=== PATIENT | female | born 2005 | race Caucasian/White ===

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

== ENCOUNTER 2024-03-02 13:16 | Emergency (ER) | payer SELFPAY ==
[2024-03-02 13:18] VITALS: BP 116/72; PULSE 111; RESP 16; TEMP 36.8; O2SAT 98
[2024-03-02 13:30] VITALS: BP 140/91; PULSE 105; O2SAT 99
--- NOTE | 2024-03-02 13:30 | PC.NURSE ---
i spoke with OB regarding pt
--- NOTE | 2024-03-02 13:33 | HMH.EDGENADL ---
Discharge Plan Disposition Patient Disposition: Home, Self-Care Condition: Good Prescriptions Prescriptions: New ibuprofen 800 mg tablet 800 mg PO Q8H 3 Days Qty: 9 0RF ondansetron 4 mg tablet,disintegrating 4 mg PO Q6H PRN (Reason: nausea and vomiting) 4 Days Qty: 16 0RF No Action Classic 28 mg iron- 800 mcg tablet PO DAILY duloxetine [Cymbalta] 20 mg capsule,delayed release(DR/EC) 40 mg PO DAILY Qty: 60 2RF cyanocobalamin (vitamin B-12) 1,000 mcg/mL solution 1,000 mcg SQ .COMPLEX Rx Instructions: 1,000 mcg subcutaneously every 2 weeks; norgestimate-ethinyl estradiol [Sprintec (28)] 0.25-35 mg-mcg tablet 1 tab PO DAILY Qty: 84 4RF Referrals Follow up/Referrals: Marco Arenas MD [Primary Care Provider] - See instructions Activity Restrictions/Add. Instructions Additional Instructions/Restrictions: Please take your Sprintec 3 times daily (every 8 hours) over the next 7 days. After 7 days please only take the medication once daily. I have written for 800 mg of ibuprofen to take every 8 hours as needed over the next 3 days. I have also written for Zofran to assist with any nausea that you may have. Please keep your scheduled appointment with Dr. Stallings on 03/12/2024 at 3 PM. Please return to ED for any worsening symptoms or Clinical Impressions Clinical Impression: Vaginal bleeding Discharge ED Provider: Horacio Chambers Adult HPI General Chief complaint: Vaginal Bleeding Stated complaint: excessive vaginal bleeding x2 weeks Time Seen by Provider: 03/02/24 13:25 Mode of Arrival: Ambulatory Source of Information: Patient Limitations: No Limitations Description of Symptoms (Recalled from ER Triage Doc. by RN): Patient states she had a baby 3 months ago and approx 2 weeks ago she had her first period since giving and now she has been bleeding the whole time. Complaint of abdomen pain, vaginal pain and weakness. History of Present Illness HPI narrative: 18-year-old female currently 3 months , past medical history of depression, GERD, migraines, presents today for evaluation concerning bright red vaginal bleeding which she states has been persistent over the past 2 weeks. She states that she has been going through anywhere from 2-3 pull-ups a day. Denies having any chest pain, shortness of breath but does report suprapubic pain. She states that she called her PYROTECHNICIAN who admonished the patient to come to the ED for further management. She has no further complaints. Related Data Home Medications Medication Instructions Recorded Confirmed cyanocobalamin (vitamin B-12) 1,000 mcg SQ .COMPLEX Supplement 09/06/22 01/19/24 1,000 mcg/mL injection solution vits no.126-ferrous fum tab PO DAILY 06/08/23 01/19/24 28 mg iron-folic acid 800 mcg tablet (Classic ) Previous Rx's Medication Instructions Recorded duloxetine 20 mg capsule,delayed 40 mg (2 x 20 mg) PO DAILY #60 caps 01/12/24 release (Cymbalta) norgestimate 0.25 mg-ethinyl 1 tab PO DAILY #84 tabs 02/27/24 estradiol 35 mcg tablet (Sprintec (28)) ibuprofen 800 mg tablet 800 mg PO Q8H 3 days #9 tabs 03/02/24 ondansetron 4 mg disintegrating 4 mg PO Q6H PRN nausea and 03/02/24 tablet vomiting 4 days #16 tabs Allergies Allergy/AdvReac Type Severity Reaction Status Date / Time diphenhydramine Allergy Intermediate Verified 01/19/24 13:06 [From Benadryl] [facility] Disclaimer: The information contained in this section may have been updated after the patient was seen, as this information can be updated by other users. Medical History (Updated 03/02/24 @ 15:40 by Horacio Chambers DO) depression Breech presentation GERD (gastroesophageal reflux disease) Major depressive disorder Surgical History (Updated 01/19/24 @ 13:44 by Liliya Oconnor DO) Status post vaginal delivery History of appendectomy Cholecystectomy planned Family History Mother Diabetes Hypertension Social History Smoking Status: Never smoker alcohol intake: never substance use type: denies use current occupational status: other Travel in the last 8 weeks: None household members: family housing: house number of children: 0 ROS Obtained: Yes All systems reviewed & no additional complaints except as documented Physical Exam General General appearance: alert and in no apparent distress Head Head exam: atraumatic and normocephalic Eye Eye exam: Present normal appearance, PERRL and EOMI ENT ENT exam: Present normal oropharynx and mucous membranes moist Neck Neck exam: Present full ROM; Absent meningismus Respiratory Respiratory exam: Absent respiratory distress, wheezes, stridor or accessory muscle use Cardiovascular Cardiovascular exam: Present normal rhythm Abdominal Exam Abdominal exam: Present soft and tenderness (Suprapubic); Absent distention, guarding, rebound or rigidity External exam: Present normal external exam Speculum exam: Present vaginal bleeding and other (Blood noted coming from cervical os. There also appears to be a small laceration parallel to cervical os. Pooling of bright red blood.) Neurological Exam Neurological exam: Present alert, oriented X3 and CN II-XII intact; Absent motor sensory deficit Psychiatric Psychiatric exam: Present normal affect and normal mood Skin Skin exam: Present warm and dry Medical Decision Making Medical Records Medical records reviewed: Yes I reviewed the patient's medical records. Jonathan Inquiry Pt receiving controlled substance: No Jonathan was queried for this patient: No Vital Signs: 03/02/24 13:18 03/02/24 13:30 03/02/24 14:01 Temperature 98.2 F Temperature Source Oral Pulse Rate 105 H 95 H Pulse Rate [Radial] 111 H Respiratory Rate 16 Blood Pressure 140/91 H 115/60 Blood Pressure [Right Arm] 116/72 Blood Pressure Mean 85 Blood Pressure Mean [Right Arm] 86 Blood Pressure Source [Right Arm] Automatic Cuff Blood Pressure Position [Right Arm] Sitting 02 Sat by Pulse Oximetry 98 99 98 Oxygen Delivery Method Room Air 03/02/24 14:30 03/02/24 15:00 Temperature Temperature Source Pulse Rate Pulse Rate [Radial] Respiratory Rate Blood Pressure 119/67 114/72 Blood Pressure [Right Arm] Blood Pressure Mean 88 83 Blood Pressure Mean [Right Arm] Blood Pressure Source [Right Arm] Blood Pressure Position [Right Arm] 02 Sat by Pulse Oximetry Oxygen Delivery Method Lab Data Lab Results 03/02/24 13:40: WBC 3.9 L, RBC 3.61 L, Hgb 8.8 L, Hct 27.4 L, MCV 75.9 L, MCH 24.2 L, MCHC 31.9, RDW 16.2, Plt Count 326, MPV 7.7, Neut % (Auto) 40.5, Lymph % (Auto) 49.4, Carver % (Auto) 7.2, Eos % (Auto) 2.5, Baso % (Auto) 0.4, Neut # (Auto) 1.6 L, Lymph # (Auto) 1.9, Carver # (Auto) 0.3, Eos # (Auto) 0.1, Baso # (Auto) 0.0, PT 11.0, INR 0.98, Sodium 138, Potassium 3.7, Chloride 108 H, Carbon Dioxide 24, Anion Gap 9.7, BUN 14, Creatinine 0.60, Estimated Creat Clear 121, Estimated GFR 127, Est GFR ( Amer) 154, Glucose 91, Calcium 9.6, Total Bilirubin 0.5, AST 35, ALT 29, Alkaline Phosphatase 42, Total Protein 6.9, Albumin 4.3, Globulin 2.6, Albumin/Globulin Ratio 1.7, Serum HCG, Qual Negative 03/02/24 13:55: Blood Type A Negative, Antibody Screen Negative 03/02/24 13:40 03/02/24 13:40 Orders (Tests/Meds): ORDERS Category Date Time Status Type and Screen Stat BBK 03/02/24 13:55 Completed CBC w/Auto Diff [Complete Blood Count Auto Diff] Stat Lab 03/02/24 13:40 Completed CMP [Comprehensive Metabolic Panel] Stat Lab 03/02/24 13:40 Completed PT INR [Prothrombin Time INR] Stat Lab 03/02/24 13:40 Completed Serum [HCG Qualitative, Serum] Stat Lab 03/02/24 13:40 Completed Medical Decision Narrative: 18-year-old female currently 3 months , past medical history of depression, GERD, migraines, presents today for evaluation concerning bright red vaginal bleeding which she states has been persistent over the past 2 weeks. She states that she has been going through anywhere from 2-3 pull-ups a day. Denies having any chest pain, shortness of breath but does report suprapubic pain. She states that she called her PYROTECHNICIAN who admonished the patient to come to the ED for further management. On assessment she was hemodynamically stable and in no acute distress. Afebrile. Chest clear to auscultation bilaterally. Tachycardic to the 120s. Abdomen was soft and nondistended and was tender in the suprapubic region. Other physical exam findings unremarkable differential diagnoses include not limited to fibroids, endometriosis, adenomyosis, , laceration, others. Speculum exam was performed with assistant tennis professional and blood pooling was noted. Blood noted to be coming from cervical os. There also appeared to be a small laceration parallel to the cervical os with some bleeding. Patient's hemoglobin today was noted to be 8.8. Hematocrit 27.4. PT/INR 11/0.98. Negative screen. I did consult with Dr. Stallings, PYROTECHNICIAN, and discussed management and she has arrived at bedside for further evaluation. PYROTECHNICIAN has evaluated patient with speculum exam and have noted that there are no lacerations. Bleeding is stable at this time. PYROTECHNICIAN has recommended that patient take her Sprintec 3 times daily over the next 7 days and then once daily thereafter. Also recommended ibuprofen 800 mg Q8 over the next 2 to 3 days. They have scheduled follow-up appointment for patient on 03/12. These plans were discussed with patient and she verbalized understanding and agreement. Provided with return ED precautions. She was subsequently discharged hemodynamically stable and in no acute distress. Critical Care Critical Care Time Critical Care Time: No
[2024-03-02 13:58] LABS: Basophils % 0.4 % (0.1-2.0); Eosinophils # 0.1 K/mm3 (0.0-0.4); Eosinophils % 2.5 % (0.1-12.0); Hematocrit 27.4 % (37.0-47.0); Hemoglobin 8.8 g/dL (12.2-16.2); Lymphocytes # 1.9 K/mm3 (0.7-4.5); Lymphocytes % 49.4 % (10-50); Mean Corpuscular HGB Conc 31.9 g/dL (31.8-35.4); Mean Corpuscular Hemoglobin 24.2 pg (27.0-31.2); Mean Corpuscular Volume 75.9 fl (81-99); Mean Platelet Volume 7.7 fl (7.4-10.4); Monocytes # 0.3 K/mm3 (0.1-1.0); Monocytes % 7.2 % (1.7-9.3); Neutrophils # 1.6 K/mm3 (1.8-7.8); Neutrophils % 40.5 % (37.0-80.0); Platelet Count 326 K/mm3 (142-424); Red Blood Count 3.61 M/mm3 (4.20-5.40); Red Cell Distribution Width 16.2 % (11.5-17.5); White Blood Count 3.9 K/mm3 (4.5-13.0)
[2024-03-02 14:01] VITALS: BP 115/60; PULSE 95; O2SAT 98
[2024-03-02 14:04] LABS: HCG Qualitative, Serum Negative (Negative); INR 0.98 (0.9-1.1)
[2024-03-02 14:06] LABS: Alanine Aminotransferase 29 U/L (12-78); Albumin Level 4.3 g/dl (3.5-5.0); Albumin/Globulin Ratio 1.7 (1.1-1.8); Alkaline Phosphatase 42 U/L (38-126); Anion Gap 9.7 mEq/L (5-15); Aspartate Amino Transferase 35 U/L (14-36); Bilirubin,Total 0.5 mg/dl (0.2-1.3); Blood Urea Nitrogen 14 mg/dl (7-17); Calcium 9.6 mg/dl (8.4-10.2); Carbon Dioxide 24 mmol/L (22.0-30.0); Chloride 108 mmol/L (98-107); Creatinine Clearance Estimated 121 mL/min (50-200); Estimated Glomerular Filt Rate 127 ml/min (>60); GFR (African American) 154 ML/MIN (>60); Globulin 2.6 g/dL (1.3-3.2); Glucose 91 mg/dl (74-100); Potassium 3.7 mmoL/L (3.5-5.1); Sodium 138 mmol/L (136-145); Total Protein,Serum 6.9 g/dl (6.3-8.2)
[2024-03-02 14:30] VITALS: BP 119/67
[2024-03-02 15:00] VITALS: BP 114/72
--- NOTE | 2024-03-02 15:13 | PC.NURSE ---
Dr. Russell at bedside.
[2024-03-02 16:00] VITALS: BP 116/72; PULSE 88; RESP 18; TEMP 36.8; O2SAT 98
--- NOTE | 2024-03-02 16:00 | P.CONS_ITS ---
History of Present Illness *Admission Date: 03/02/24 *Reason for visit:: Heavy vaginal bleeding, weakness *History of present illness: Mrs Nancy Fan is a 18 yo P1001, 13 weeks 5 days s/p at home, who presented to [facility] ED with complaint of heavy vaginal bleeding since starting her period 2 weeks ago. She admits to associated cramping, weakness and lightheadedness. Her , Johnathon, called the office on 02/26 and and stated Nancy started her period 11 days prior (February 16). She started Aviane with her period and had been bleeding every day since. She was having cramping and a little nausea. We discussed switching OCP to see if it would help control her period better. She decided to try a different OCP. Aviane discontinued. Sprintec prescribed. She has been taking Sprintec for the past week. Denies fever/chills, chest pain and shortness of breath. Denies syncope. [facility] Disclaimer: The information contained in this section may have been updated after the patient was seen, as this information can be updated by other users. Medical History (Updated 03/02/24 @ 16:18 by Liliya Oconnor DO) Anemia Abnormal uterine bleeding (AUB) depression Breech presentation GERD (gastroesophageal reflux disease) Major depressive disorder Surgical History (Updated 03/02/24 @ 16:18 by Liliya Oconnor DO) Status post vaginal delivery History of appendectomy Cholecystectomy planned Family History Mother Diabetes Hypertension Social History Smoking Status: Never smoker alcohol intake: never substance use type: denies use current occupational status: other Travel in the last 8 weeks: None household members: family housing: house number of children: 0 Review of Systems Review of Systems Review of systems:: pertinent systems reviewed and negative unless documented below Constitutional Constitutional: Reports weakness ENT Ears, Nose, Mouth, and Throat: Reports vertigo *Genitourinary Genitourinary: Reports abnormal vaginal bleeding *Neurologic Neurologic: Reports vertigo and Reports weakness Meds Home Medications and Allergies Home Medications Medication Instructions Recorded Confirmed Type cyanocobalamin (vitamin B-12) 1,000 mcg SQ .COMPLEX Supplement 01/16/23 05/30/24 History 1,000 mcg/mL injection solution vits no.126-ferrous fum tab PO DAILY 06/08/23 01/19/24 History 28 mg iron-folic acid 800 mcg tablet (Classic ) duloxetine 20 mg capsule,delayed 40 mg (2 x 20 mg) PO DAILY #60 caps 01/12/24 01/19/24 Rx release (Cymbalta) norgestimate 0.25 mg-ethinyl 1 tab PO DAILY #84 tabs 02/27/24 Rx estradiol 35 mcg tablet (Sprintec (28)) ibuprofen 800 mg tablet 800 mg PO Q8H 3 days #9 tabs 03/02/24 Rx ondansetron 4 mg disintegrating 4 mg PO Q6H PRN nausea and 03/02/24 Rx tablet vomiting 4 days #16 tabs New Prescriptions to Start Prescriptions: ibuprofen Chambers,Hubbard ondansetron Chambers,Horacio Allergies Allergy/AdvReac Type Severity Reaction Status Date / Time diphenhydramine Allergy Intermediate Verified 01/19/24 13:06 [From Daina] Exam (Inpt) Vital signs and Labs for Last 24 Hours: Temp Pulse Resp BP Pulse Ox O2 Del Method 98.2 F 95 H 16 114/72 98 Room Air 03/02/24 13:18 03/02/24 14:01 03/02/24 13:18 03/02/24 15:00 03/02/24 14:01 03/02/24 13:18 Laboratory Results - last 24 hr 03/02/24 13:40: WBC 3.9 L, RBC 3.61 L, Hgb 8.8 L, Hct 27.4 L, MCV 75.9 L, MCH 24.2 L, MCHC 31.9, RDW 16.2, Plt Count 326, MPV 7.7, Neut % (Auto) 40.5, Lymph % (Auto) 49.4, Ceiba % (Auto) 7.2, Eos % (Auto) 2.5, Baso % (Auto) 0.4, Neut # (Auto) 1.6 L, Lymph # (Auto) 1.9, Ceiba # (Auto) 0.3, Eos # (Auto) 0.1, Baso # (Auto) 0.0, PT 11.0, INR 0.98, Sodium 138, Potassium 3.7, Chloride 108 H, Carbon Dioxide 24, Anion Gap 9.7, BUN 14, Creatinine 0.60, Estimated Creat Clear 121, Estimated GFR 127, Est GFR ( Amer) 154, Glucose 91, Calcium 9.6, Total Bilirubin 0.5, AST 35, ALT 29, Alkaline Phosphatase 42, Total Protein 6.9, Albumin 4.3, Globulin 2.6, Albumin/Globulin Ratio 1.7, Serum HCG, Qual Negative 03/02/24 13:55: Blood Type A Negative, Antibody Screen Negative I & O for Labs for Last 24 Hours: Intake & Output 02/28/24 02/29/24 03/01/24 03/02/24 23:59 23:59 23:59 23:59 Weight 113 lb HEENT Head: Present normocephalic and atraumatic Neck: Present full ROM Respiratory: Present normal respiratory effort Cardiac: Present Regular Rate GI: Present soft; Absent tenderness : Present normal urethra appearance; Absent erythema, swelling, lesions, ecchymosis or lacerations Vagina: Present normal moisture; Absent discharge Rectal (female): Present deferred Extremities: Present normal inspection and full ROM; Absent edema Neuro: Present alert, awake and moves all extremities Assessment and Plan *Assessment and plan (1) Abnormal uterine bleeding (AUB): Status: Acute Category: Medical Code(s): N93.9 - Abnormal uterine and vaginal bleeding, unspecified (2) Anemia: Status: Acute Category: Medical Code(s): D64.9 - Anemia, unspecified Plan Speculum exam was within normal limits. Blood noted in vaginal vault. No bleeding from cervix with valsalva. Hgb 8.8 Discussed admission to the hospital for observation. Nancy wishes to go home. She states she feels well enough to go home Instructed her to take Sprintec, 1 tab PO TID for 7 days followed by daily after Asked ED provider to send in script for Ibuprofen 800 mg, 1 tab PO q 8 hours for 2-3 days and zofran PRN nausea Recommended she rest and increased fluids She has an appointment to follow-up in the office 02/10 at 1500
== END 2024-03-02 16:01 | disposition home or self-care (01) ==
PROVIDERS: Emergency Provider Emergency Medicine; PCP Family Medicine
DX: N93.9 Abnormal uterine and vaginal bleeding, unspecified (principal); D64.9 Anemia, unspecified; K21.9 Gastro-esophageal reflux disease without esophagitis
CPT/HCPCS: 36415; 80053; 84703; 85025; 85610; 86850; 99283

== ENCOUNTER 2025-03-29 10:52 | Outpatient (CLI) | payer SELFPAY ==
--- OUTSIDE RECORDS SUMMARY | 2025-04-01 11:01 | XMS_ITS | Clinical Summary ---
Author Organization Healthcare Address [address] 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 Do not crush or chew. Active Vit-DSS-Fe Cbn-FA ( AD PO) Take 1 tablet by mouth 1 (one) time each day. Active Misc Natural Products (YUMVS BEET ROOT-TART LUCIANO PO) Take by mouth. Active ferrous sulfate 324 (65 Fe) MG EC tablet Take 1 tablet (324 mg) by mouth 1 (one) time each day with breakfast. Do not crush, chew, or split. 30 tablet 3 11/27/2023 Active nystatin-triamc inolone (Mycolog II) ointmentIndicat ions:Thrush Locally to nipples q eight hrs, and as needed 30 g 1 12/13/2023 Active Active Problems Problem Noted Date Diagnosed Date growth restriction antepartum 10/22/2023 Resolved Problems Problem Noted Date Diagnosed Date Resolved Date hemorrhage, unspecified type 11/27/2023 11/27/2023 Vaginal bleeding during 10/19/2023 10/22/2023 Social History Tobacco Use Types Packs/Day Years Used Date Smoking Tobacco: Never Passive Smoke Exposure: Never Smokeless Tobacco: Never Alcohol Use Standard Drinks/Week Comments Never 0 (1 standard drink = 0.6 oz pur e alcohol) Comments No Sex and Gender Information Value Date Recorded Sex Assigned at Not on file Legal Sex Female 5:49 PM EST Gender Identity Not on file Sexual Orientation Not on file Last Filed Vital Signs Vital Sign Reading Time Taken Comments Blood Pressure 121/71 11/27/2023 7:20 AM EDT Pulse 140 11/27/2023 7:20 AM EDT Temperature 37.1 C (98.7 F) 11/27/2023 5:20 AM EDT Respiratory Rate 22 11/27/2023 5:20 AM EDT Oxygen Saturation 96% 11/27/2023 7:20 AM EDT Inhaled Oxygen Concentration - - Weight 58.1 kg (128 lb) 10/20/2023 1:15 PM EST Height 160 cm (5' 3 ) 10/20/2023 1:15 PM EST Body Mass Index 22.67 10/20/2023 1:15 PM EST Plan of Treatment Health Maintenance Due Date Last Done Comments [facility]-Depression Screening 2003 [facility]-HIV Screening 2003 [facility]-Hepatitis C Screening 2003 [facility]-/Child/Adol SDOH Screenings 2003 [facility]-Varicella Vaccines (1 of 2 - 13+ 2-dose series) 2016 HPV Vaccines (1 - 3-dose series) 2018 [facility]- SDOH Screenings 2021 [facility]-Adult SDOH Screenings 2021 [facility]-DTaP,Tdap,and Td Vaccine s (1 - Tdap) 2022 [facility]-Hepatitis B Vaccines (1 of 3 - 19+ 3-dose series) 2022 [id number] Vaccine (1 - 20 24-25 season) 2024 [facility]-Pap Smear 2024 [facility]-Influenza Vaccine (#1) 2025 [facility]-Zoster Vaccines (1 of 2) 2053 [facility]-HIB Vaccines Aged Out No longer e ligible based on patient's age to complete this topic [facility]-Hepatitis A Vaccines Aged Out No longer eligible based on patient's age to complete this topic [facility]-IPV Vaccines Aged Out No longer e ligible based on patient's age to complete this topic [facility]-Pneumococcal Vaccine: Pediatrics (0 to 5 Years) and At-Risk Patients (6 to 49 Years) Aged Out No long er eligible based on patient's age to complete this topic [facility]-Rotavirus Vaccines Aged Out No lo nger eligible based on patient's age to complete this topic Advance Directives * Full Code (Latest Code Status on File) Date Activated Date Inactivated Comments 11/27/2023 6:29 AM 11/27/2023 1:47 PM Question Answer Comments Patient has decision-making capacity? Yes * Full Code Date Activated Date Inactivated Comments 10/19/2023 8:11 PM 10/22/2023 3:02 PM Question Answer Comments Patient has decision-making capacity? Yes Care Teams Animated Cartoons Painter Relationship Specialty Start Date End Date Marco Arenas MD [address] [place] [id number] PCP - General 10/19/22
[2025-04-03 17:17] LABS: Bacterial Vaginosis Associated 0; Candida albicans, NAA 0; Candida glabrata, NAA 0
== END 2025-03-29 23:59 | disposition home or self-care (01) ==
LOC: LAB.DROPOF 04-01 10:52
PROVIDERS: PCP Obstetrics & Gynecology; Visit Provider Obstetrics & Gynecology
DX: O09.299 Supervision of pregnancy with other poor reproductive or obstetric history, unspecified trimester (principal); N94.10 Unspecified dyspareunia; R10.2 Pelvic and perineal pain
CPT/HCPCS: 87086; 87798; 87801